=== PATIENT | male | born 1980 | race Caucasian/White ===

== ENCOUNTER 2021-04-04 11:32 | Emergency (ER) | payer BC ==
[2021-04-04] MEDS ORDERED: IBUPROFEN600 MG PO (13:00)
== END 2021-04-04 13:09 | disposition home or self-care (01) ==
LOC: ER1 11:32
DX: S63.91XA Sprain of unspecified part of right wrist and hand, initial encounter (principal); I10 Essential (primary) hypertension; Z79.899 Other long term (current) drug therapy; X58.XXXA Exposure to other specified factors, initial encounter
CPT/HCPCS: 29125; 73100; 73130; 99283